=== PATIENT | male | born 1990 | race African-American/Black ===

== ENCOUNTER 2025-04-25 22:28 | Inpatient (IN) | payer MEDICAID, OTHER ==
[~2025-04-25] VITALS: Ht 165.1 cm; Wt 67.1 kg
[2025-04-25 22:34] VITALS: O2SAT 100
[2025-04-26 00:32] LABS: HEMATOCRIT. 37.2 % (42.0-52.0); HEMOGLOBIN. 11.8 g/dL (14.0-18.0); MEAN PLATELET VOLUME 7.6 fl (7.4-10.4); PLATELET 269 x1000/uL (130-400); RED BLOOD CELL COUNT 4.18 mill/uL (4.7-6.1); RED CELL DISTRIBUTION WIDTH 17.3 % (11.6-14.6)
[2025-04-26 00:47] LABS: CREATININE 1.0 mg/dL (0.6-1.3)
[2025-04-26 00:48] LABS: UREA NITROGEN BLOOD 23 mg/dL (9-23)
[2025-04-26 00:52] LABS: TROPONIN I HIGH SENSITIVITY 81 ng/L (3.0-53)
[2025-04-26 03:23] LABS: ATYPICAL LYMPHOCYTES 1; BAND% 1.0 % (1.0-6.0); BASOPHILS % MANUAL 2.0 % (0.0-2.0); EOSINOPHILS % MANUAL 14.0 % (0.0-5.0); LYMPHOCYTES % MANUAL 51.0 % (20.0-50.0); MONOCYTES % MANUAL 7.0 % (2.0-8.0); NEUTROPHILS % MANUAL 24.0 % (45.0-75.0)
[2025-04-26 03:24] LABS: PLATELET ESTIMATE NORMAL
[2025-04-26] MEDS: FUROSEMIDE 40MG TABLET PO ONE (03:29)
[2025-04-26] MEDS: ASPIRIN 325MG EC TABLET PO ONE (03:29)
[2025-04-26 06:00] VITALS: BP_SYST 157; BP_SYST 165; BP_DIAS 64; BP_DIAS 72; PULSE 101; PULSE 110; RESP 20; RESP 25; TEMP 36.9; TEMP 36.9184; O2SAT 98
[2025-04-26 08:00] VITALS: BP 161/66; PULSE 104; RESP 29; TEMP 36.7; O2SAT 98
[2025-04-26] MEDS ORDERED: NALOXONE HCL 0.4MG/ML VIAL IV PRN (08:15)
[2025-04-26] MEDS: LOSARTAN 50 MG TABLET PO SCH (08:31)
[2025-04-26] MEDS: ISOSORBIDE MONONITRATE 60MG TABLET SR 24HR PO SCH (08:31)
[2025-04-26] MEDS: ASPIRIN 81MG TABLET PO SCH (08:31)
[2025-04-26] MEDS: METOPROLOL SUCCINATE 50MG ER TABLET PO SCH (08:56)
[2025-04-26] MEDS: ENOXAPARIN 80MG/0.8ML SYR SUBCUT NR (08:56)
[2025-04-26 11:48] LABS: INR 1.4
[2025-04-26 12:00] VITALS: BP 146/59; PULSE 87; RESP 25; TEMP 36.6; O2SAT 100
[2025-04-26 12:04] LABS: TRIGLYCERIDE 101 mg/dL (0-150)
[2025-04-26 12:05] LABS: LDL CHOLESTEROL 122 mg/dL (5-100)
[2025-04-26 12:09] LABS: T4 FREE 1.07 ng/dL (0.89-1.76)
[2025-04-26] MEDS: INSULIN LISPRO 100 UNITS/ML SUBCUT SCH (13:00)
[2025-04-26] MEDS: BLOOD SUGAR DIAGNOSTIC STRIP TEST SCH (13:23)
[2025-04-26] MEDS ORDERED: MAGNESIUM 1 G PREMIX 100 ML IV ONE (15:00)
[2025-04-26] MEDS: FUROSEMIDE 40MG/4ML VIAL IVP SCH (15:37)
[2025-04-26 16:00] VITALS: BP 136/59; PULSE 87; RESP 16; TEMP 36.6; O2SAT 100
[2025-04-26 17:00] LABS: CLARITY URINE CLEAR (CLEAR); COLOR URINE YELLOW (YELLOW); GLUCOSE URINE NEGATIVE (NEGATIVE); KETONES URINE NEGATIVE (NEGATIVE); LEUKOCYTE ESTERASE URINE NEGATIVE (NEGATIVE); NITRITE URINE NEGATIVE (NEGATIVE); OCCULT BLOOD URINE NEGATIVE (NEGATIVE); PH URINE 5.0 (4.5-8.0); PROTEIN URINE NEGATIVE (NEGATIVE); SPECIFIC GRAVITY URINE 1.007 (1.005-1.030); UROBILINOGEN URINE 0.2 E.U./dL (0.2-1.0)
[2025-04-26 17:09] LABS: *AMPHETAMINES SCREEN URINE NEGATIVE (NEGATIVE); *BARBITURATES SCREEN URINE NEGATIVE (NEGATIVE); *BENZODIAZEPINES SCREEN URINE NEGATIVE (NEGATIVE); *COCAINE SCREEN URINE NEGATIVE (NEGATIVE); CANNABINOID URINE SCREEN NEGATIVE (NEGATIVE); ECSTASY MDMA SCREEN URINE NEGATIVE (NEGATIVE); METHADONE URINE SCREEN NEGATIVE (NEGATIVE); OPIATES URINE SCREEN NEGATIVE (NEGATIVE); PHENCYCLIDINE URINE SCREEN NEGATIVE (NEGATIVE)
[2025-04-26] MEDS ORDERED: MAGNESIUM 2 G PREMIX 100 ML IV ONE (17:37)
[2025-04-26] MEDS: MAGNESIUM 1 G PREMIX 100 ML IV NR (17:48)
[2025-04-26 19:23] LABS: TROPONIN I HIGH SENSITIVITY 68 ng/L (3.0-53)
[2025-04-26 20:00] VITALS: BP 138/57; PULSE 100; RESP 29; TEMP 36.7; O2SAT 97
[2025-04-26] MEDS: ATORVASTATIN CALCIUM 40MG TABLET PO SCH (20:18)
[2025-04-26] MEDS: HYDROCODONE/ACETAMINOPHEN 10/325MG TABLET PO PRN (20:22)
[2025-04-26] MEDS ORDERED: ENOXAPARIN 80MG/0.8ML SYR SUBCUT SCH (21:00)
[2025-04-26] MEDS: HYDROMORPHONE HCL/PF 1MG/ML INJ IV PRN (23:38)
[2025-04-27] VITALS: BP 138/48; PULSE 82; RESP 14; TEMP 36.6; O2SAT 96
[2025-04-27 04:00] VITALS: BP 121/42; PULSE 75; RESP 16; TEMP 36.4; O2SAT 99
[2025-04-27 08:00] VITALS: BP 141/51; PULSE 80; RESP 18; TEMP 36.3; O2SAT 100
[2025-04-27] MEDS ORDERED: ENOXAPARIN 40MG/0.4ML SYR SUBCUT SCH (09:00)
[2025-04-27] MEDS: FUROSEMIDE 40MG/4ML VIAL IVP SCH (10:46)
[2025-04-27] MEDS: SPIRONOLACTONE 25MG TABLET PO SCH (10:48)
[2025-04-27 11:38] LABS: BASOPHILS % 0.4 % (0.0-2.0); EOSINOPHILS % 1.1 % (0.0-5.0); HEMATOCRIT. 33.9 % (42.0-52.0); HEMOGLOBIN. 10.7 g/dL (14.0-18.0); LYMPHOCYTES % 16.7 % (20.0-50.0); MEAN PLATELET VOLUME 8.2 fl (7.4-10.4); MONOCYTES % 3.3 % (2.0-8.0); NEUTROPHILS % 78.5 % (40.0-76.0); PLATELET 173 x1000/uL (130-400); RED BLOOD CELL COUNT 3.80 mill/uL (4.7-6.1); RED CELL DISTRIBUTION WIDTH 18.0 % (11.6-14.6)
[2025-04-27 11:50] LABS: UREA NITROGEN BLOOD 30.0 mg/dL (9-23)
[2025-04-27 12:00] VITALS: BP 139/48; PULSE 79; RESP 18; TEMP 36.2; O2SAT 97
[2025-04-27 12:13] LABS: CREATININE 1.7 mg/dL (0.6-1.3)
[2025-04-27 12:15] LABS: TROPONIN I HIGH SENSITIVITY 73.0 ng/L (3.0-53)
[2025-04-27] MEDS: MAGNESIUM 1 G PREMIX 100 ML IV SCH (13:45)
[2025-04-27 16:00] VITALS: BP 133/43; PULSE 76; RESP 18; TEMP 36.3; O2SAT 98
[2025-04-27 20:00] VITALS: BP 100/37; PULSE 76; RESP 17; TEMP 35.5; O2SAT 100
[2025-04-27 23:58] LABS: TROPONIN I HIGH SENSITIVITY 96 ng/L (3.0-53)
[2025-04-28] VITALS: BP 114/45; PULSE 69; RESP 16; TEMP 35.6; O2SAT 100
[2025-04-28 04:00] VITALS: BP 118/43; PULSE 70; RESP 19; TEMP 35.6; O2SAT 98
[2025-04-28] MEDS: DEXTROSE 50% WATER 50ML SYRINGE IV PRN (06:02)
[2025-04-28 08:00] VITALS: BP 153/45; PULSE 68; RESP 19; TEMP 36.6; O2SAT 99
[2025-04-28 12:00] VITALS: BP 149/55; PULSE 69; RESP 18; TEMP 36.3; O2SAT 99
[2025-04-28 16:00] VITALS: BP 140/50; PULSE 69; RESP 19; TEMP 36.4; O2SAT 99
[2025-04-28] MEDS: ONDANSETRON HCL 4MG/2ML INJ IV PRN (18:20)
[2025-04-28 20:00] VITALS: BP 125/39; PULSE 72; RESP 18; TEMP 36.2; O2SAT 99
[2025-04-29] VITALS (8 sets, daily range): BP systolic 96–150; BP diastolic 40–112; PULSE 59–75; RESP 18–29; TEMP 36.2–36.3; O2SAT 91–100
[2025-04-29] MEDS: GUAIFENESIN 200MG/10ML SUGAR FREE UDC PO PRN (01:31)
[2025-04-29] MEDS: NITROGLYCERIN OINT 1GM/INCH UDPKT TD NR (07:02)
[2025-04-29] MEDS ORDERED: NITROGLYCERIN 0.4MG TABLET SL SL PRN (08:00)
[2025-04-29 08:48] LABS: BASOPHILS % 0.5 % (0.0-2.0); EOSINOPHILS % 1.8 % (0.0-5.0); LYMPHOCYTES % 30.3 % (20.0-50.0); MEAN PLATELET VOLUME 8.8 fl (7.4-10.4); MONOCYTES % 10.0 % (2.0-8.0); NEUTROPHILS % 57.4 % (40.0-76.0); PLATELET 204 x1000/uL (130-400); RED BLOOD CELL COUNT 4.68 mill/uL (4.7-6.1); RED CELL DISTRIBUTION WIDTH 18.0 % (11.6-14.6)
[2025-04-29 08:55] LABS: HEMOGLOBIN. 13.1 g/dL (14.0-18.0)
[2025-04-29 08:56] LABS: HEMATOCRIT. 43.0 % (42.0-52.0)
[2025-04-29 09:04] LABS: UREA NITROGEN BLOOD 59 mg/dL (9-23)
[2025-04-29 09:13] LABS: TROPONIN I HIGH SENSITIVITY 191 ng/L (3.0-53)
[2025-04-29 09:25] LABS: CREATININE 3.8 mg/dL (0.6-1.3)
[2025-04-29] MEDS: CALCIUM GLUCONATE 100MG/ML 10ML VIAL IV NR (09:58)
[2025-04-29] MEDS: SODIUM BICARBONATE 8.4% 50MEQ/50ML SYR IV ONE (09:58)
[2025-04-29] MEDS ORDERED: SODIUM CHLORIDE 0.9% 1,000 ML IV SCH (10:00)
[2025-04-29] MEDS: SODIUM POLYSTYRENE SULFONATE 15 G/60 ML BOT PO NR (10:04)
[2025-04-29] MEDS: DEXTROSE 50% WATER 50ML SYRINGE IV NR (10:42)
[2025-04-29] MEDS: INSULIN REGULAR (HUMULIN R) 1000UNITS/10ML VIAL IV NR (10:42)
[2025-04-29] MEDS: CEFTRIAXONE 1GM/50ML 50 ML IV SCH ×2 (11:30→15:30)
[2025-04-29] MEDS: SODIUM BICARBONATE 8.4% 50MEQ/50ML SYR IV SCH (13:00)
[2025-04-29] MEDS ORDERED: LIDOCAINE HCL 1% 10 MG/ML 10ML VIAL ONE (13:07)
[2025-04-29 13:19] LABS: BG BASE EXCESS -9.8 mmol/L (-2.0-3.0); BG CARBOXYHEMOGLOBIN 0.7 % (0.5-1.5); BG DEOXYHEMOGLOBIN 2.1 % (0.0-5.0); BG FRACTION INSPIRED OXYGEN 21; BG HCO3 ACT 14.1 mmol/L (21.0-28.0); BG METHEMOGLOBIN 0.3 % (0.5-1.5); BG OXYGEN SATURATION 97.9 % (94.0-98.0); BG OXYHEMOGLOBIN 96.9 % (94.0-98.0); BG PCO2 26.3 mmHg (35.0-48.0); BG PH 7.346 (7.350-7.450); BG PO2 110.4 mmHg (83.0-108.0); BG SAMPLE SITE RIGHT RADIAL; BG TOTAL HEMOGLOBIN 14.3 g/dL (13.5-17.5); BG VENT MODE ROOM AIR
[2025-04-29] MEDS: SODIUM BICARBONATE 150 MEQ in DEXTROSE 5% WATER 850 ML IV SCH (14:00)
[2025-04-29] MEDS: DOXYCYCLINE 100MG/100ML 100 ML IV SCH (18:00)
[2025-04-30] VITALS (12 sets, daily range): BP systolic 86–131; BP diastolic 33–64; PULSE 65–71; RESP 9–25; TEMP 36.4; O2SAT 88–100
[2025-04-30] MEDS: MIDODRINE HCL 5MG TABLET PO SCH (09:21)
[2025-04-30] MEDS: LORAZEPAM 1MG TABLET PO PRN (09:38)
[2025-04-30 22:40] LABS: HEMATOCRIT. 37.7 % (42.0-52.0); HEMOGLOBIN. 12.1 g/dL (14.0-18.0); MEAN PLATELET VOLUME 9.2 fl (7.4-10.4); PLATELET 168 x1000/uL (130-400); RED BLOOD CELL COUNT 4.29 mill/uL (4.7-6.1); RED CELL DISTRIBUTION WIDTH 17.7 % (11.6-14.6)
[2025-04-30 22:55] LABS: CREATININE 3.9 mg/dL (0.6-1.3); UREA NITROGEN BLOOD 79 mg/dL (9-23)
[2025-04-30 22:57] LABS: ASPARTATE AMINOTRANSFERASE 390 IU/L (<34); BILIRUBIN DIRECT 2.0 mg/dL (<=3.0); BILIRUBIN TOTAL 2.7 mg/dL (0.1-1.0); PHOSPHORUS 4.6 mg/dL (2.5-4.9)
[2025-04-30 22:58] LABS: PROTEIN TOTAL 5.8 g/dL (6.0-8.3)
[2025-04-30 23:12] LABS: EOSINOPHILS % MANUAL 8.0 % (0.0-5.0); LYMPHOCYTES % MANUAL 24.0 % (20.0-50.0); MONOCYTES % MANUAL 10.0 % (2.0-8.0); NEUTROPHILS % MANUAL 58.0 % (45.0-75.0); PLATELET ESTIMATE NORMAL
[2025-05-01] VITALS (12 sets, daily range): BP systolic 102–125; BP diastolic 31–82; PULSE 68–78; RESP 12–30; TEMP 35.8–39.1; O2SAT 86–99
[2025-05-01] MEDS: OLANZAPINE 5MG TABLET ODT PO SCH (09:43)
[2025-05-01 12:50] LABS: HEMATOCRIT. 36.9 % (42.0-52.0); HEMOGLOBIN. 12.0 g/dL (14.0-18.0); MEAN PLATELET VOLUME 9.1 fl (7.4-10.4); PLATELET 157 x1000/uL (130-400); RED BLOOD CELL COUNT 4.22 mill/uL (4.7-6.1); RED CELL DISTRIBUTION WIDTH 18.3 % (11.6-14.6)
[2025-05-01 13:01] LABS: CREATININE 4.0 mg/dL (0.6-1.3); UREA NITROGEN BLOOD 90 mg/dL (9-23)
[2025-05-01 13:03] LABS: PHOSPHORUS 3.8 mg/dL (2.5-4.9)
[2025-05-01 14:21] LABS: BAND% 5.0 % (1.0-6.0); EOSINOPHILS % MANUAL 13.0 % (0.0-5.0); LYMPHOCYTES % MANUAL 24.0 % (20.0-50.0); MONOCYTES % MANUAL 8.0 % (2.0-8.0); NEUTROPHILS % MANUAL 50.0 % (45.0-75.0); NUCLEATED RED BLOOD CELLS 4 /100 WBC; PLATELET ESTIMATE NORMAL
[2025-05-01] MEDS: PENICILLIN G BENZATHINE 2,400,000 UNITS/4ML SYR IM NR (16:16)
[2025-05-02] VITALS (12 sets, daily range): BP systolic 100–141; BP diastolic 35–53; PULSE 71–88; RESP 10–29; TEMP 36.1–36.8; O2SAT 95–100
[2025-05-02] MEDS: OLANZAPINE 5MG TABLET ODT PO SCH (08:54)
[2025-05-03] VITALS (11 sets, daily range): BP systolic 80–149; BP diastolic 29–78; PULSE 77–96; RESP 19–27; TEMP 36.5–36.7; O2SAT 88–95
[2025-05-03 07:49] LABS: RED BLOOD CELL COUNT 2.80 mill/uL (4.7-6.1); RED CELL DISTRIBUTION WIDTH 18.3 % (11.6-14.6)
[2025-05-03 08:05] LABS: CREATININE 2.9 mg/dL (0.6-1.3)
[2025-05-03 08:06] LABS: ASPARTATE AMINOTRANSFERASE 294 IU/L (<34); BILIRUBIN TOTAL 3.0 mg/dL (0.1-1.0); UREA NITROGEN BLOOD 77 mg/dL (9-23)
[2025-05-03 08:08] LABS: BILIRUBIN DIRECT 2.2 mg/dL (<=3.0); PHOSPHORUS 2.8 mg/dL (2.5-4.9); PROTEIN TOTAL 5.0 g/dL (6.0-8.3)
[2025-05-03 08:15] LABS: FOLIC ACID (FOLATE) SERUM 10.41 ng/mL (>5.38)
[2025-05-03 08:21] LABS: HEMATOCRIT. 25.4 % (42.0-52.0); HEMOGLOBIN. 8.0 g/dL (14.0-18.0)
[2025-05-03 08:22] LABS: MEAN PLATELET VOLUME 9.8 fl (7.4-10.4); PLATELET 89 x1000/uL (130-400)
[2025-05-03 08:25] LABS: VITAMIN B12 SERUM > 2000 pg/mL (211-911)
[2025-05-03 14:00] LABS: BAND% 3.0 % (1.0-6.0); EOSINOPHILS % MANUAL 14.0 % (0.0-5.0); LYMPHOCYTES % MANUAL 15.0 % (20.0-50.0); MONOCYTES % MANUAL 8.0 % (2.0-8.0); NEUTROPHILS % MANUAL 60.0 % (45.0-75.0); NUCLEATED RED BLOOD CELLS 2 /100 WBC
[2025-05-03 14:02] LABS: PLATELET ESTIMATE DECREASED
[2025-05-03] MEDS: SODIUM CHLORIDE 0.9% 1,000 ML IV SCH (14:25)
[2025-05-03] MEDS: ASCORBIC ACID 250 MG TABLET PO SCH (21:04)
[2025-05-04] VITALS (56 sets, daily range): BP systolic 56–141; BP diastolic 13–124; PULSE 52–147; RESP 10–33; TEMP 35.94732–36.61404; O2SAT 96–97
[2025-05-04 00:25] LABS: BASOPHILS % 0.2 % (0.0-2.0); EOSINOPHILS % 1.3 % (0.0-5.0); LYMPHOCYTES % 18.1 % (20.0-50.0); MEAN PLATELET VOLUME 9.9 fl (7.4-10.4); MONOCYTES % 9.0 % (2.0-8.0); NEUTROPHILS % 71.4 % (40.0-76.0); PLATELET 78 x1000/uL (130-400); RED BLOOD CELL COUNT 2.01 mill/uL (4.7-6.1); RED CELL DISTRIBUTION WIDTH 18.0 % (11.6-14.6)
[2025-05-04 00:30] LABS: HEMOGLOBIN. 5.7 g/dL (14.0-18.0)
[2025-05-04 00:31] LABS: HEMATOCRIT. 18.2 % (42.0-52.0)
[2025-05-04] MEDS: FERROUS SULFATE 325MG TABLET PO SCH (08:13)
[2025-05-04] MEDS: HYDROCODONE/ACETAMINOPHEN 10/325MG TABLET PO PRN (16:30)
[2025-05-04 18:30] LABS: MEAN PLATELET VOLUME 10.1 fl (7.4-10.4); PLATELET 61 x1000/uL (130-400); RED BLOOD CELL COUNT 1.77 mill/uL (4.7-6.1); RED CELL DISTRIBUTION WIDTH 19.1 % (11.6-14.6)
[2025-05-04 18:47] LABS: CREATININE 3.6 mg/dL (0.6-1.3); UREA NITROGEN BLOOD 81 mg/dL (9-23)
[2025-05-04 18:49] LABS: BILIRUBIN DIRECT 2.0 mg/dL (<=3.0); BILIRUBIN TOTAL 2.6 mg/dL (0.1-1.0); HEMATOCRIT. 17.3 % (42.0-52.0); HEMOGLOBIN. 4.9 g/dL (14.0-18.0); PROTEIN TOTAL 3.5 g/dL (6.0-8.3)
[2025-05-04 18:50] LABS: INR 2.2
[2025-05-04 19:00] LABS: ASPARTATE AMINOTRANSFERASE 1150 IU/L (<34)
[2025-05-04 19:06] LABS: BAND% 4.0 % (1.0-6.0); LYMPHOCYTES % MANUAL 15.0 % (20.0-50.0); MONOCYTES % MANUAL 3.0 % (2.0-8.0); NEUTROPHILS % MANUAL 78.0 % (45.0-75.0); PLATELET ESTIMATE DECREASED
[2025-05-04] MEDS ORDERED: NALOXONE HCL 0.4MG/ML VIAL IV PRN (19:15)
[2025-05-04 19:23] LABS: PHOSPHORUS 8.0 mg/dL (2.5-4.9)
[2025-05-04 19:29] LABS: HEPATITIS A AB IGM NEGATIVE (Negative)
[2025-05-04 19:30] LABS: HEPATITIS B CORE AB IGM NEGATIVE (Negative); HEPATITIS C AB NON REACTIVE (Neg) (Negative)
[2025-05-04] MEDS ORDERED: PHENYLEPHRINE 50MG/250ML PMX 250 ML IV PRN (19:45)
[2025-05-04] MEDS ORDERED: NOREPINEPHRINE 8MG/250ML PMX 250 ML IV PRN (19:45)
[2025-05-04 20:17] LABS: RED BLOOD CELL COUNT 1.14 mill/uL (4.7-6.1); RED CELL DISTRIBUTION WIDTH 18.8 % (11.6-14.6)
[2025-05-04 20:28] LABS: PLATELET 39 x1000/uL (130-400)
[2025-05-04 20:30] LABS: CREATININE 3.6 mg/dL (0.6-1.3)
[2025-05-04 20:31] LABS: UREA NITROGEN BLOOD 87 mg/dL (9-23)
[2025-05-04 20:58] LABS: PHOSPHORUS 10.2 mg/dL (2.5-4.9)
[2025-05-04] MEDS: PHENYLEPHRINE 100 MG in DEXT 5% WATER 240 ML IV PRN (21:55)
[2025-05-04] MEDS: NOREPINEPHRINE 32 MG in DEXT 5% WATER 218 ML IV PRN (21:56)
[2025-05-04] MEDS: EPINEPHRINE 10 MG in SODIUM CHLORIDE 0.9% 240 ML IV PRN (21:57)
[2025-05-04] MEDS: VASOPRESSIN 20 UNIT in SODIUM CHLORIDE 0.9% 99 ML IV PRN (21:57)
[2025-05-04] MEDS: DOPAMINE 400MG/250ML PREMIX 250 ML IV PRN (21:59)
[2025-05-04] MEDS: DEXTROSE 50% WATER 50ML SYRINGE IV NR (22:50)
[2025-05-04] MEDS: CALCIUM GLUCONATE 1GM PREMIX 50 ML IV NR (23:33)
[2025-05-04] MEDS: SODIUM BICARBONATE 150 MEQ in SODIUM CHLORIDE 0.45% 850 ML IV SCH (23:34)
[2025-05-04] MEDS: INSULIN REGULAR (HUMULIN R) 1000UNITS/10ML VIAL IV NR (23:34)
[2025-05-04 23:51] LABS: BG BASE EXCESS -26.5 mmol/L (-2.0-3.0); BG CARBOXYHEMOGLOBIN 0.3 % (0.5-1.5); BG DEOXYHEMOGLOBIN 80.2 % (0.0-5.0); BG FRACTION INSPIRED OXYGEN 100; BG HCO3 ACT 6.3 mmol/L (21.0-28.0); BG METHEMOGLOBIN 3.4 % (0.5-1.5); BG OXYGEN SATURATION 16.7 % (94.0-98.0); BG OXYHEMOGLOBIN 16.1 % (94.0-98.0); BG PCO2 46.3 mmHg (35.0-48.0); BG PEEP (cmH2O) 5.0 cmH2O; BG PH 6.753 (7.350-7.450); BG PO2 19.9 mmHg (83.0-108.0); BG SAMPLE SITE RIGHT BRACHIAL; BG TIDAL VOLUME(mL) 500.0 mL; BG TOTAL HEMOGLOBIN 5.8 g/dL (13.5-17.5); BG VENT MODE VENT - AC; BG VENT RATE 30.0 set
[2025-05-05] VITALS (20 sets, daily range): BP systolic 73–219; BP diastolic 39–141; PULSE 0–90; RESP 16–35; TEMP 36.3–36.7; O2SAT 95–98
[2025-05-05] MEDS: SODIUM BICARBONATE 8.4% 50MEQ/50ML SYR IV SCH (00:45)
[2025-05-05] MEDS: PANTOPRAZOLE SODIUM 40 MG/VIAL IV SCH (01:50)
[2025-05-05 08:08] LABS: HIV 1 ABS Reactive (Non Reactive); HIV 2 ABS Non Reactive (Non Reactive); HIV SCREEN 4G Preliminary Reactive (Non Reactive)
== END 2025-05-05 04:15 | DRG 890 ==
LOC: ER 22:28 → 5EST 04-26 01:47 → EDBEDREQ 04-26 02:07 → ENRESERV 04-26 02:53 → CANRESERV 04-26 02:58 → ENRESERVTM 04-26 02:58 → ENRESERV 04-26 05:12 → 5WST 04-27 06:03 → 5EST 04-29 13:58 → MICUNO 05-04 18:46
PROVIDERS: ADMIT Internal Medicine; ATTEND Internal Medicine
PROC: 30233N1 Transfusion of Nonautologous Red Blood Cells into Peripheral Vein, Percutaneous Approach (ICD-10-PCS; principal; 2025-05-04)
PROC: 5A1935Z Respiratory Ventilation, Less than 24 Consecutive Hours (ICD-10-PCS; 2025-05-04)
PROC: 0BH17EZ Insertion of Endotracheal Airway into Trachea, Via Natural or Artificial Opening (ICD-10-PCS; 2025-05-04)
PROC: 02HV33Z Insertion of Infusion Device into Superior Vena Cava, Percutaneous Approach (ICD-10-PCS; 2025-05-04)
PROC: B548ZZA Ultrasonography of Superior Vena Cava, Guidance (ICD-10-PCS; 2025-05-04)
PROC: 5A12012 Performance of Cardiac Output, Single, Manual (ICD-10-PCS; 2025-05-05)
DX: A41.9 Sepsis, unspecified organism (principal); B20 Human immunodeficiency virus [HIV] disease; J96.01 Acute respiratory failure with hypoxia; N17.0 Acute kidney failure with tubular necrosis; G04.90 Encephalitis and encephalomyelitis, unspecified; G93.41 Metabolic encephalopathy; I50.33 Acute on chronic diastolic (congestive) heart failure; R65.20 Severe sepsis without septic shock; K57.91 Diverticulosis of intestine, part unspecified, without perforation or abscess with bleeding; D68.9 Coagulation defect, unspecified; E87.1 Hypo-osmolality and hyponatremia; Z59.00 Homelessness unspecified; I21.A1 Myocardial infarction type 2; I46.9 Cardiac arrest, cause unspecified; F12.90 Cannabis use, unspecified, uncomplicated; E11.649 Type 2 diabetes mellitus with hypoglycemia without coma; E78.5 Hyperlipidemia, unspecified; E87.5 Hyperkalemia; F20.9 Schizophrenia, unspecified; I35.1 Nonrheumatic aortic (valve) insufficiency; I13.0 Hypertensive heart and chronic kidney disease with heart failure and stage 1 through stage 4 chronic kidney disease, or unspecified chronic kidney disease; E11.22 Type 2 diabetes mellitus with diabetic chronic kidney disease; J40 Bronchitis, not specified as acute or chronic; D50.0 Iron deficiency anemia secondary to blood loss (chronic); N18.9 Chronic kidney disease, unspecified; F15.90 Other stimulant use, unspecified, uncomplicated; R74.01 Elevation of levels of liver transaminase levels; Z78.1 Physical restraint status; Z82.49 Family history of ischemic heart disease and other diseases of the circulatory system; Z88.5 Allergy status to narcotic agent; Z90.49 Acquired absence of other specified parts of digestive tract; Z91.148 Patient's other noncompliance with medication regimen for other reason; Z79.899 Other long term (current) drug therapy
CPT/HCPCS: 31500; 31720; 36415; 36600; 71045; 71250; 74176; 76700; 80048; 80061; 80076; 80305; 81003; 82270; 82375; 82550; 82607; 82728; 82746; 82805; 82962; 83036; 83540; 83550; 83735; 83880; 84100; 84145; 84439; 84443; 84484; 85025; 85027; 85044; 86592; 86593; 86701; 86702; 86705; 86709; 86850; 86900; 86920; 87340; 87389; 92950; 93005; 93306; 94002; 94003; 94664; 99285; A4606; J0561; J0612; J0696; J1171; J1265; J1642; J1650; J1815; J1938; J2003; J2371; J2405; J2470; J3475; J3490; J7030; J7050; J7060; J7070; P9016